=== PATIENT | male | born 1960 | race Caucasian/White ===

== ENCOUNTER 2016-10-02 12:30 | Inpatient (IN) | payer OTHER ==
[~2016-10-02] VITALS: Ht 195.6 cm; Wt 126.7 kg
--- NOTE | ~2016-10-02 | DS ---
PATIENT'S NAME: STUART PATEL V [facility] AGE: 56 Y [address] ROOM: [address] [place], [place] [address] LOCATION: [facility] [place] ADMIT DATE: 10/02/2016 Discharge Summary DISCHARGE DATE: 10/05/2016 FAMILY PHYSICIAN: Mello Bingham MD ATTENDING PHYSICIAN: Mello Bingham DISCHARGE DIAGNOSIS: Acute kidney injury on chronic kidney disease, 3 secondary to acute tubular necrosis. PROCEDURES PERFORMED: Daily renal function panel. CONSULTATIONS: Nephrology. DISCHARGE MEDICATIONS: 1. Famotidine 20 mg 1 tablet as needed. 2. Venlafaxine 75 mg once daily. 3. Advair 1 puff twice daily, 500/50. 4. Albuterol (ProAir) as needed. 5. Alprazolam 0.5 mg 3 times per day as needed. 6. Magnesium oxide 400 mg twice daily. 7. Furosemide 40 mg as needed for swelling. 8. Nebivolol 10 mg once daily. 9. Percocet 7.5/325 mg every 6 hours as needed. HISTORY OF PRESENT ILLNESS: Stuart Patel is a 56-year-old male with past medical history of CKD, stage 3; cor pulmonale with right-sided heart failure secondary to diastolic dysfunction; COPD; severe generalized anxiety disorder; and chronic pain disorder who presented to clinic on 10/02/2016 for routine checkup. Of note, he was taking multiple doses of NSAIDs in the last several weeks. He was found to have a creatinine of 4.1 and was subsequently transferred to [facility] for inpatient hospitalization. Nephrology was consulted for RITO on CKD. HOSPITAL COURSE: On admission (10/02/2016), all nephrotoxins and hypertensive medications were held. He received a 2 L normal saline bolus over 2 hours, followed by 1.5 L of normal saline over 10 hours. On day 2 of admission, (10/03/2016), his creatinine improved to 0.9. Per Nephrology's recommendations, he received half normal saline plus 75 mEq of sodium bicarbonate at 100 mL/h for 24 hours. Due to significant anxiety, he was started on venlafaxine 75 mg. On day 2 of the admission (10/04/2016), his creatinine improved to 1.8, and his intravenous fluids were discontinued. On day 4 of admission (10/05/2016), his creatinine improved to 1.6, and he was discharged with close followup with his PCP and Nephrology. PATIENT'S NAME: STUART PATEL V [facility] AGE: 56 Y [address] ROOM: [id number] [place] [id number] LOCATION: [facility] [place] ADMIT DATE: 10/02/2016 Discharge Summary DISCHARGE DATE: 10/05/2016 FAMILY PHYSICIAN: Mello Bingham MD ATTENDING PHYSICIAN: Mello Bingham DISPOSITION: Discharged to home on a low-salt diet. PCP followup in 1 week, and Nephrology followup in 2 weeks. CONDITION: Hemodynamically stable with significant improvement of his RITO upon discharge. We will follow up renal function panel at PCP appointment. MD LANA CLINE/modl /[id number] d: 10/05/16 2336 t: 10/25/16 1552, DISCHARGE SUMMARY
--- NOTE | ~2016-10-02 | CON ---
PATIENT'S NAME: STUART PATEL V [facility] AGE: 56 Y [address] ROOM: [address] [place], [place] [address] [place]: [facility] [place] ADMIT DATE: 10/02/2016 Consultation DISCHARGE DATE: FAMILY PHYSICIAN: Mello Bingham MD ATTENDING PHYSICIAN: Mello Bingham DATE OF CONSULTATION: 10/02/2016 REFERRING PHYSICIAN: Mello Bingham MD REASON FOR CONSULTATION: RITO on CKD. HISTORY OF PRESENT ILLNESS: A 56-year-old male with history of COPD; chronic respiratory failure, on home oxygen; cor pulmonale with right-sided heart failure, secondary to diastolic dysfunction; severe generalized anxiety disorder; possible obstructive sleep apnea; history of DVT in the past with mild baseline renal insufficiency with creatinine of 1.1 in the last summer; came today to Dr. Bingham's office for routine check up, found to have a creatinine of 4.1. The patient was transferred to [facility] for further evaluation and management. Nephrology consultation has been called for RITO on CKD. As per the patient's records, he was on multiple antihypertensive medications. As per the patient, he has lost significant weight in the recent times and his blood pressure at home most days runs in the 80 to 90 systolic. He was also doing some exercise, and for generalized body aches and pains, he was taking multiple doses of NSAIDs namely Aleve and Advil almost every day for the last few weeks. The patient has a history of an RITO in late 2014 and early 2015 with similar issues when he developed an RITO, following NSAIDs, ultimately leading to incomplete recovery with a creatinine of 1.1. The patient mentioned that he has been eating and drinking well; however, for the last couple of days, he is having significant nausea and dry heaves, but has not vomited. He also complained of mild hiccups occasionally. No complaint of chest pain, shortness of breath, appears to be slightly dry during my evaluation. He denies any chest pain or orthopnea or palpitation. No history of any contrast exposure in the recent past. The patient denied any other jnsw-mio-dbbgier medications other than NSAIDs. REVIEW OF SYSTEMS: GENERAL: No fever. No chills or rigor. HEENT: No sore throat. No sinus congestion. CVS: No chest pain. No exertional shortness of breath. No leg swelling. RESPIRATORY: No shortness of breath. No cough. No wheezing. GENITOURINARY: No pain with urination. No increased frequency. No nocturia. GASTROINTESTINAL: No abdominal pain. No abdominal distention. Significant nausea and dry heaves. No vomiting. Also, history of hiccups as mentioned in HPI. NEUROLOGIC: No weakness. No seizures. SKIN: No rash. No itching. ALLERGIES: No seasonal allergy. No hayfever. ENDOCRINE: No heat intolerance. No cold intolerance. PSYCHIATRIC: No sadness. No crying spells. No history of panic attack. PATIENT'S NAME: STUART PATEL V [facility] AGE: 56 Y [address] ROOM: [place] [address] LOCATION: [facility] [place] ADMIT DATE: 10/02/2016 Consultation DISCHARGE DATE: FAMILY PHYSICIAN: Mello Bingham MD ATTENDING PHYSICIAN: Mello Bingham PAST MEDICAL HISTORY: 1. COPD. 2. Cor pulmonale and right-sided heart failure secondary to diastolic congestive heart failure. 3. Early cellulitis. 4. Venous stasis dermatitis. 5. Severe generalized anxiety disorder. 6. Probable obstructive sleep apnea. 7. History of DVT. 8. Chronic respiratory failure, on 2 L of oxygen. PAST SURGICAL HISTORY: 1. Previous ankle surgery. 2. Previous thoracoscopy. 3. Arthroscopy. 4. Left inguinal hernia repair. SOCIAL HISTORY: Works at [employer]. 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 Denied any alcohol, smoking, or IV drug abuse. FAMILY HISTORY: Both parents have significant history of cardiac disorder. Father of congestive heart failure at age 89. Mother is alive at age 81. Brother is alive at 60 and with good health. Sister is 57 with history of hypertension. CURRENT MEDICATIONS: 1. ProAir HFA 2 puffs inhaler q.4 hours p.r.n. for his shortness of breath. 2. Xanax 0.25 mg p.o. b.i.d. 3. Norvasc 5 mg p.o. daily. 4. Advair 500/50 one puff inhaler b.i.d. 5. Lasix 40 mg p.o. daily and Lasix 80 mg p.o. daily, a total of 120 mg p.o. daily. 6. Lisinopril hydrochlorothiazide 05/16.5 one tablet p.o. daily. 7. Magnesium oxide 400 mg p.o. daily. 8. Bystolic 20 mg p.o. daily. 9. Percocet 1 tablet p.o. q.4 hours p.r.n. for pain. PATIENT'S NAME: STUART PATEL V [facility] AGE: 56 Y [address] ROOM: [address] [address] LOCATION: [facility] [place] ADMIT DATE: 10/02/2016 Consultation DISCHARGE DATE: FAMILY PHYSICIAN: Mello Bingham MD ATTENDING PHYSICIAN: Mello Bingham PHYSICAL EXAMINATION: VITAL SIGNS: Blood pressure 100s/60s, pulse rate 93, respiratory rate 16, temperature 98.3, saturating at 96% to 98% on room air. GENERAL: Not in apparent distress. HEAD: Dry mucous membrane. Bilateral PERRLA. EOMI. NECK: Flat JVD. No thyromegaly. No lymphadenopathy. CVS: S1 and S2 normal, regular rate and rhythm. No murmur, rub, gallop. CHEST: Bilateral air entry equal. No wheeze or rales. ABDOMEN: Soft, nontender, nondistended. Bowel sounds present. EXTREMITIES: No cyanosis, clubbing, jaundice. No dependent edema. MUSCULOSKELETAL: No limitation of range of motion. SKIN: No pallor, cyanosis, icterus. HORSE EXERCISER: Alert and oriented x3. No gross findings. LABORATORY STUDIES: Creatinine 4.1, BUN of 100, sodium 136, potassium 4.4, chloride 101, bicarb 23, calcium 9.1, glucose 102. Urinalysis and urine lytes are pending. ASSESSMENT AND PLAN: 1. Acute kidney injury on chronic kidney disease stage 3. Chronic kidney disease presumably secondary to previous acute kidney injury resulting into incomplete recovery. This acute kidney injury is possibly secondary to acute tubular necrosis either hemodynamic versus toxic secondary to NSAID induced. We will hold all antihypertensive medications. No further nephrotoxin exposure like NSAIDs or contrast. We will gently volume expand the patient. We will give couple of liters of normal saline now and we will run at 150 mL/hour. We will place and maintain a Davis catheter for strict intake and output. Daily standing weight. We will do a renal ultrasound to rule out any obstruction. Please send UA and urine lytes including sodium, potassium, chloride, bicarb and osmolality. The patient has been instructed to avoid NSAIDs in the future. The patient already had two episodes of acute kidney injury with NSAIDs, although the creatinine of 1.1 in last summer appears to be normal, but probably the estimated GFR is below 60. 2. Hypertension. The patient is on multiple antihypertensive medications for both hypertension and heart failure. The patient is on Bystolic, lisinopril/hydrochlorothiazide combination, and Lasix 120 mg p.o. daily. We will hold all antihypertensive medications for now, and we will adjust the dosing as per necessary during the time of discharge. 3. The patient has chronic obstructive pulmonary disease. We will defer that management as per the primary team. Thank you for allowing me to participate in this patient's care. We will closely monitor the patient's progress along with you. NANETTE OLVERA MD /modl /[id number] d: 10/03/168 t: 10/06/16 1635, CONSULTATION REPORT
[~2016-10-02 12:30] MED LIST: ADVAIR 500-501 EACH INH; ASTELIN NOSE; BYSTOLIC10 MG PO; BYSTOLIC5 MG PO; COMBIVENT RESPIM4 GM PO; DELTASONE20 M1 PO; DELTASONE20 MG PO; DOXYCYCLINE100 MG PO; DURICEF (NON-500 MG PO; HYDROCODON-ACE1 EAC6 PO; LASIX20 MG PO; MAG-OX-400(241400 MG PO; NORCO 10-325 T1 EACH PO; PAXIL20 MG PO; PERCOCET 7.5-31 EACH PO; PROAIR HFA8.5 GM INH; PROVENTIL OR V6.7 GM INH; XANAX0.5 MG PO
[2016-10-02] MEDS ORDERED: LASIX40 MG PO (13:57)
[2016-10-02 17:22] LABS: CALCIUM 9.1 mg/dL (8.5-10.5)
[2016-10-02 17:23] LABS: ANION GAP 16.4 (10.0-19.0); CREATININE 4.1 mg/dL (0.6-1.3); POTASSIUM 4.4 mMol/L (3.7-5.1)
[2016-10-02 23:01] LABS: BILIRUBIN URINE NEGATIVE (NEGATIVE); BLOOD URINE 50 /UL (NEGATIVE); COLOR URINE YELLOW (YELLOW); GLUCOSE URINE NEGATIVE (NEGATIVE); KETONE URINE NEGATIVE (NEGATIVE); LEUKOCYTES URINE NEGATIVE /UL (NEGATIVE); NITRITE URINE NEGATIVE (NEGATIVE); PROTEIN URINE NEGATIVE (NEGATIVE); SPEC GRAVITY URINE 1.015 (1.003-1.035); TURBIDITY URINE CLEAR (CLEAR); UROBILINOGEN URINE NORMAL (NORMAL)
[2016-10-02 23:07] LABS: BACTERIA URINE NEGATIVE (NEGATIVE); EPITHELIAL URINE 0-2 #/HPF (NEGATIVE); WBC URINE 0-2 #/HPF (NEGATIVE)
[2016-10-03 06:11] LABS: ANION GAP 15.3 (10.0-19.0); CALCIUM 8.3 mg/dL (8.5-10.5); CREATININE 2.9 mg/dL (0.6-1.3); POTASSIUM 4.3 mMol/L (3.7-5.1)
[2016-10-04 07:36] LABS: ANION GAP 11.2 (10.0-19.0); CALCIUM 8.8 mg/dL (8.5-10.5); CREATININE 1.8 mg/dL (0.6-1.3); POTASSIUM 4.2 mMol/L (3.7-5.1)
[2016-10-05 05:17] LABS: ALBUMIN 3.3 gm/dL (3.5-5.0); CREATININE 1.6 mg/dL (0.6-1.3); PHOSPHORUS 3.3 mg/dL (2.5-4.9)
[2016-10-05] MEDS ORDERED: PEPCID20 MG PO (15:33)
[2016-10-05] MEDS ORDERED: EFFEXOR75 MG PO (15:34)
== END 2016-10-05 17:15 | disposition disaster alternative care site (69) | DRG 683 ==
LOC: GMSU 13:02
PROVIDERS: Internal Medicine Nephrology; ADMIT Obstetrics & Gynecology Obstetrics
DX: N17.0 Acute kidney failure with tubular necrosis (principal); I13.0 Hypertensive heart and chronic kidney disease with heart failure and stage 1 through stage 4 chronic kidney disease, or unspecified chronic kidney disease; J96.10 Chronic respiratory failure, unspecified whether with hypoxia or hypercapnia; I95.9 Hypotension, unspecified; I50.32 Chronic diastolic (congestive) heart failure; I27.81 Cor pulmonale (chronic); E66.01 Morbid (severe) obesity due to excess calories; N18.3 Chronic kidney disease, stage 3 (moderate); J44.9 Chronic obstructive pulmonary disease, unspecified; J45.30 Mild persistent asthma, uncomplicated; G89.4 Chronic pain syndrome; Z68.32 Body mass index [BMI] 32.0-32.9, adult; F41.1 Generalized anxiety disorder; Z86.711 Personal history of pulmonary embolism; I87.2 Venous insufficiency (chronic) (peripheral)
CPT/HCPCS: J1650; J7030

== ENCOUNTER 2016-10-10 18:22 | Observation (INO) | payer OTHER ==
[~2016-10-10] VITALS: Ht 193 cm; Wt 122.2 kg
--- NOTE | ~2016-10-10 | DS ---
PATIENT'S NAME: STUART OLSEN V [facility] AGE: 56 Y [address] ROOM: [address] [place], [place] [address] LOCATION: [facility] [place] ADMIT DATE: 10/10/2016 Discharge Summary DISCHARGE DATE: 10/12/2016 FAMILY PHYSICIAN: Mohan Kennedy MD ATTENDING PHYSICIAN: Mohan Kennedy DISCHARGE DIAGNOSIS: Gout. SECONDARY DIAGNOSES: 1. Generalized anxiety disorder. 2. Cor pulmonale and right heart failure secondary to diastolic congestive heart failure. 3. Chronic obstructive pulmonary disease. 4. Chronic kidney disease, stage 3. 5. Venous stasis dermatitis. CONSULTS: None. HOSPITAL COURSE: Mr. Stuart Olsen is a 56-year-old male with the above past medical history who presented to the ED on 10/10/2016 for severe left hand pain and swelling. He was recently discharged from the hospital on 10/05/2016 following RITO on CKD stage 3 secondary to acute tubular necrosis. In the ED, he had an elevated uric acid level, ESR, and CRP and was diagnosed with acute gout affecting the metacarpophalangeal joints of his left forefinger and left middle finger. He was admitted to inpatient status and given IV methylprednisolone 80 mg q.8 hours for a total of 4 doses. His home medications were continued. He was discharged on 10/12/2016 on a steroid taper and his home medications. DISCHARGE MEDICATIONS: 1. Prednisone 10 mg tablets with a taper of 3 tablets twice daily for 3 days, then 2.5 tablets twice daily for 3 days, then 2 tablets twice daily for 3 days, then 1.5 tablets twice daily for 3 days, then 1 tablet twice daily for 3 days, then a half tablet twice daily for 3 days, then a half tablet once daily for 3 days. A total of 65 tablets of 10 mg prednisone. 2. Alprazolam 0.5 mg 3 times daily as needed. 3. Nebivolol hydrochloride 10 mg daily. 4. Venlafaxine hydrochloride tablet 75 mg once daily. 5. Magnesium oxide 400 mg tablet twice daily. 6. Advair 500/50 Diskus one puff twice daily. 7. Percocet 7.5/325 mg every 6 hours as needed. 8. ProAir 8.6 g 2 puffs every 4 hours as needed. 9. Furosemide 40 mg once daily as needed. 10. Famotidine 20 mg twice daily. PATIENT'S NAME: STUART OLSEN V [facility] AGE: 56 Y [address] ROOM: [address] [address] LOCATION: [facility] [place] ADMIT DATE: 10/10/2016 Discharge Summary DISCHARGE DATE: 10/12/2016 FAMILY PHYSICIAN: Mohan Kennedy MD ATTENDING PHYSICIAN: Mohan Kennedy DIET: Low-salt diet, less than 2 g per day. CONDITION: Fair. DISPOSITION: Stuart is discharged home on a steroid taper with close PCP followup in 3 days on 10/15/2016, with a second followup on 10/19/2016. We discussed the possibility of assisted living with him while he was in the hospital and will follow up on that conversation at his outpatient appointment. KEYLA KIDD, MEDICAL STUDENT FOR MOHAN KENNEDY MD AT/modl /[id number] d: 10/12/16 1413 t: 10/25/16 1632, DISCHARGE SUMMARY
--- NOTE | ~2016-10-10 | HP ---
PATIENT'S NAME: STUART PATEL V [facility] AGE: 56 Y [address] ROOM: [place] [address] LOCATION: [facility] ADMIT DATE: 10/10/2016 History & Physical DISCHARGE DATE: FAMILY PHYSICIAN: Mello Bingham MD ATTENDING PHYSICIAN: Aaron Ortez DATE OF SERVICE: CHIEF COMPLAINT: Severe left hand pain and swelling. HISTORY OF PRESENT ILLNESS: The patient is a 56-year-old white male who was just discharged from the hospital on 10/05/2016 following RITO on chronic kidney disease, stage 3, secondary to acute tubular necrosis. He was admitted after using NSAIDs inappropriately with a creatinine of 4.1; subsequently, came down to 1.6 at the time of his discharge. He states since he has went home he started having some swelling and pain of his hand over the last 4-5 days, he has not been seen during that time, and came in requesting pain medicine. He did have an elevated uric acid level and was also found to complain of bilateral foot pain, which he states has been there for years, and is not any different than his norm. He states he was told by the ER physician that he cannot be at home on his own and does not feel like he can be safe at home at this point. He states he is unable to move himself out of a chair or out of bed at all. PAST MEDICAL HISTORY: All reviewed from and P on 10/02/2016 and are unchanged. SOCIAL HISTORY: All reviewed from and P on 10/02/2016 and are unchanged. FAMILY HISTORY: All reviewed from and P on 10/02/2016 and are unchanged. REVIEW OF SYSTEMS: All reviewed from and P on 10/02/2016 and are unchanged. PHYSICAL EXAMINATION: VITAL SIGNS: Weight 122.9 kg, pulse 85, respirations 16, temperature 97.2, blood pressure 127/82, and O2 saturation 93% on room air. GENERAL: The patient is nontoxic appearing 56-year-old in mild amount of distress, secondary to left hand pain and swelling. HEENT: Normocephalic and atraumatic. He really is not taking very good care of himself at this point throughout the weeks. HEART: Regular rate and rhythm. PATIENT'S NAME: STUART PATEL V [facility] AGE: 56 Y [address] ROOM: [place] [address] LOCATION: [facility] ADMIT DATE: 10/10/2016 History & Physical DISCHARGE DATE: FAMILY PHYSICIAN: Mello Bingham MD ATTENDING PHYSICIAN: Aaron Ortez LUNGS: Clear. ABDOMEN: Obese, nondistended, nontender. Bowel sounds positive. There is no hepatosplenomegaly. No guarding or rebound. EXTREMITIES: No clubbing or cyanosis. To lower extremities, he does have feet that are under very poor care, they are unkept, extreme callus from each one is noted, and they are very dry. His left hand does have a fair amount of swelling and erythema present especially over the 2nd and 3rd MCP joint. He is going through range of motion of his wrist and of his hand. NEUROLOGICAL: He is focally intact. LABORATORY DATA: Alcohol level is normal. CRP is 23.0. Pro-BNP is 317. Procalcitonin level is 0.19. Sedimentation rate 101. CMS shows sodium 138, potassium 3.9, chloride 102, CO2 23, glucose 88, calcium 9.1, BUN 24, creatinine 1.4, total protein 7.9, albumin 2.8, bilirubin 0.8, alk phos 200, AST 22, ALT 34, and estimated GFR 52. His magnesium was 2.0, CPK is 10, MB is normal, and troponin is normal. D-dimer is elevated at 1.73. Uric acid is elevated at 10.9. Rheumatoid factor is less than 10. CBC shows white cell count is 7.5, hemoglobin 10.9, hematocrit 32.6%, and platelet count 235,000. PTT is 30, PT is 10.7 with an INR of 1.0. ABG shows a pH of 7.41, pCO2 of 39, pO2 of 70, bicarb 26, and O2 saturations 94% on room air with a lactate of 0.7. ASSESSMENT AND PLAN: A 56-year-old white male with the following problem list: 1. Significant swelling of left hand. He feels like this has completely incapacitated him and he is not able to be safely at home. He states this combined with his bilateral foot pain, which is stable, but chronic for him have riddled him in unsafe environment. He states he cannot even get out of a chair or out of bed at all. He is very unkept when he comes in. 2. History of pulmonary embolism. He does have a V/Q scan that is currently pending, but did go over the CT scan because of his recent acute renal injury obviously that is positive we will need to put him on heparin. 3. Chronic kidney disease, stage 3. Overall, this is stable at this point. 4. History of heart failure with preserved ejection fraction. Overall, stable at this point. 5. Venous stasis dermatitis, which is pretty significant. 6. Probable obstructive sleep apnea. 7. Severe generalized anxiety disorder. This may be playing a big role in this as well as he really is actually pretty giddy about being here and really I think liked the hospitalized setting and certainly does not want to go home at this point. This has been discussed with the patient. He voiced understanding of the plan. Dr. Bingham will assume care in the morning. PATIENT'S NAME: STUART PATEL V [facility] AGE: 56 Y [address] ROOM: [place] [address] LOCATION: [facility] ADMIT DATE: 10/10/2016 History & Physical DISCHARGE DATE: FAMILY PHYSICIAN: Mello Bingham MD ATTENDING PHYSICIAN: Aaron Ortez LINA MC MD TAB/modl /[id number] D: T: HISTORY & PHYSICAL
--- NOTE | ~2016-10-10 | ER ---
PATIENT'S NAME: STUART PATEL [facility] AGE: 56 Y [address] ROOM: [facility] [place] [place], [place] [address] [place] [facility] [place] DATE: 10/10/2016 ER/Outpatient Report DISCHARGE DATE: FAMILY PHYSICIAN: Mello Bingham MD ATTENDING PHYSICIAN: Mello Bingham Time of Arrival: Admission date and time documented on the medical record. Time of Evaluation: I saw the patient at 1830 hours. CHIEF COMPLAINT: Unable to ambulate because of left knee pain, also has swelling and pain in his left hand and wrist. HISTORY OF PRESENT ILLNESS: The patient feels like he cannot take care of himself at home; because of his pain, presented to the emergency room. The patient was brought to the emergency room by paramedics via ambulance for evaluation. The patient states he has not been up and about very much at all for the past 4 to 5 days; has not eaten or drank pretty much except for some little bit of food that the friends brought in. He has not bathe or cleansed himself for 4 to 5 days. Very unkempt individual on arrival to the emergency department. The patient states he is kind of having generalized weakness; feels like he is dehydrated. No fall or trauma. Denies any recent fever, chills, or sweats. Denies any cough. No real shortness of breath, but does have some chest discomfort at times. No lightheadedness, dizziness, syncope, or near syncope. No abdominal pain, nausea, vomiting, or diarrhea. No skin eruptions or rash. Does have swelling of his left hand and wrist with decreased range of motion, and also has swelling of his left knee with decreased range of motion. No endocrine problems or neuro changes. Does have anxiety and depression. HOME MEDICATIONS: See attached medication list. ALLERGIES: NONE. SOCIAL HISTORY: Nonsmoker. Does drink alcohol. SIGNIFICANT PAST MEDICAL HISTORY: Nonsustained V-tach; COPD, asthmatic type; exogenous obesity; nocturnal hypoxia; chronic kidney disease; cor pulmonale; diastolic dysfunction with right-sided congestive failure; venous stasis dermatitis; anxiety; depression; chronic respiratory failure, O2 dependent; deep vein thrombosis; pulmonary embolism; and hypertension. PATIENT'S NAME: STUART PATEL [facility] AGE: 56 Y [address] ROOM: [id number] [place], [place] [address] LOCATION: [facility] [place]MIT DATE: 10/10/2016 ER/Outpatient Report DISCHARGE DATE: FAMILY PHYSICIAN: Mello Bingham MD ATTENDING PHYSICIAN: Mello Bingham OPERATIONS: Ankle surgery, right knee surgery, left inguinal herniorrhaphy, and shoulder surgery. REVIEW OF SYSTEMS: All systems reviewed by me are negative with the exception of those discussed in the history of present illness. PHYSICAL EXAMINATION: VITAL SIGNS: Temperature 97.2, pulse 85, respirations 16, blood pressure 127/82, and O2 saturation on room air is 93%. HEAD: Normocephalic. EYES: Extraocular muscles intact. PERRL. EARS: Clear TMs bilaterally. NOSE: Clear. THROAT: Clear. Mucous membranes dry. NECK: No nuchal rigidity. No thyromegaly or cervical adenopathy. SPINE: Negative. LUNGS: Decreased breath sounds diffusely. No rales, rhonchi, or wheezes. HEART: Regular. Pulses palpable. Some anterior chest pain to palpation. ABDOMEN: Mildly obese, soft, nondistended, nontender. Good bowel tones. No organomegaly or abnormal masses palpable. EXTREMITIES: No peripheral cyanosis. Does have edema to his left hand and wrist and left knee. No deformity. NEUROVASCULAR: Appears to be intact. The patient is weak. SKIN: Has venous stasis dermatitis on his lower extremities. No other rashes or exanthems. IMAGING DATA: EKG showed sinus rhythm. No acute ST elevation, ischemic changes, or arrhythmia. Chest x-ray shows cardiomegaly. Possible some increased vascular congestion. No acute infiltrate. We will review x-ray with the radiologist. LABORATORY DATA: Medical blood alcohol was less than 0.01. CRP was 23.8. ProBNP was slightly elevated at 317. Sedimentation rate was elevated at 101. Lactate was 0.7. Arterial blood gases on room air showed a pH of 7.41, pCO2 of 39, pO2 of 70 with an O2 saturation of 94%. White count was 7500, 63 segs, 18 lymphs, 14 monos, 4 eos, 1 baso; hemoglobin was 10.9; hematocrit 32.6; platelet count was 235,000. PTT was 30, pro-time was 10.7, INR 1.0. Uric acid was elevated at 10.9. Quantitative rheumatoid factor was less than 20. Serum ammonia level was less than 10. D-dimer was 1.73. Did proceed with a V/Q scan of the lungs that showed low probability of PE. CMS was normal except for an elevated BUN of 24, elevated creatinine 1.4, low GFR of 52. Alkaline phosphatase was 200. PATIENT'S NAME: STUART PATEL [facility] AGE: 56 Y [address] ROOM: [address] [address] LOCATION: [facility] [place]MIT DATE: 10/10/2016 ER/Outpatient Report DISCHARGE DATE: FAMILY PHYSICIAN: Mello Bingham MD ATTENDING PHYSICIAN: Mello Bingham Magnesium was 2.0. Puwil-fo-vxva cardiac enzymes and CPK were normal. Procalcitonin was 0.19. IMPRESSION: 1. Left hand, wrist, and knee swelling/pain. Most likely secondary to gout. The patient's uric acid is elevated. Because of his pain and swelling, he is unable to ambulate and take care of himself at home. He has not been eating or drinking very well or getting around in his apartment. The patient is in need of assistance, possibly placement. 2. Chronic kidney disease. 3. Chronic obstructive pulmonary disease, asthma, chronic respiratory failure, O2 dependent. 4. Cor pulmonale. 5. Diastolic dysfunction with right-sided failure. 6. Past history of deep vein thrombosis with pulmonary embolism. 7. Hypertension. PLAN: Discussed the patient with Dr. Vazquez for Dr. Bingham. Dr. Vazquez is coming in to evaluate the patient and possibly admit the patient to the hospital. Discussion ensued with the patient concerning my findings and recommendations, he understands. MD ZONIA KARIMI/modl /[id number] d: 10/11/16 0824 t: 10/16/16 1821, OUTPATIENT REPORT
[~2016-10-10 18:22] MED LIST changes: -DELTASONE10 MG PO; -LASIX80 MG PO; -NORVASC5 MG PO; -ZESTORETIC 10-1 EACH PO
[2016-10-10 19:18] LABS: BICARBONATE 24.7 mmol/L (18.0-23.0); LACTATE 0.7 mEq/L (0.50-1.60); PCO2 39 mmHg (35-45); PO2 70 mmHg (80-90)
[2016-10-10 20:35] LABS: BASOPHIL % 0.5 %; EOSINOPHIL # 0.3 K/uL (0.0-0.5); HEMATOCRIT 32.6 % (37.0-53.0); HEMOGLOBIN 10.9 g/dL (12.0-17.0); IMMATURE GRANULOCYTE # 0.1 K/uL (0.0-0.3); IMMATURE GRANULOCYTE % 0.8 %; LYMPHOCYTE # 1.4 K/uL (0.8-4.0); LYMPHOCYTE % 18.3 %; MCH 32.5 pg (27.0-34.0); MCHC 33.4 gm/dL (32.0-36.5); MCV 97.3 fl (83.0-98.0); MONOCYTE # 1.1 K/uL (0.0-1.0); MONOCYTE % 13.9 %; NEUTROPHIL # (ANC) 4.7 K/uL (1.4-9.0); NEUTROPHIL % 62.5 %; NRBC % 0 /100WBC (0-0.00); PLATELET COUNT 235 K/uL (150-450); RBC 3.35 M/uL (4.00-6.00); RDW-CV 12.6 % (11.9-14.6); WBC 7.5 K/uL (4.0-11.0)
[2016-10-10 20:46] LABS: PROTIME 10.7 SECONDS (9.6-11.1); PTT 30 SECONDS (25-32)
[2016-10-10 20:56] LABS: ALBUMIN 2.8 gm/dL (3.5-5.0); ALK PHOS 200 IU/L (33-138); ALT 34 IU/L (12-78); ANION GAP 16.9 (10.0-19.0); AST 22 IU/L (10-40); BLOOD UREA NITROGEN 24 mg/dL (6-24); CALCIUM 9.1 mg/dL (8.5-10.5); CHLORIDE 102 mMol/L (96-110); CO2 23 mMol/L (22-32); CPK 10 IU/L (35-332); CREATININE 1.4 mg/dL (0.6-1.3); ESTIMATED GFR (MDRD EQUATION) 52; POTASSIUM 3.9 mMol/L (3.7-5.1); SODIUM 138 mMol/L (135-145); TOTAL BILIRUBIN 0.8 mg/dL (0.0-1.5); TOTAL PROTEIN 7.9 g/dL (6.0-8.4)
--- NOTE | 2016-10-11 03:55 | NUR ---
ADMIT FOR ACUTE GOUT AND GENERALIZED WEAKNESS. PATIENT RECENTLY DISCHARGED FROM HOSPITAL ON 10/05 AFTER RITO WITH CHRONIC KIDNEY DISEASE. SINCE DISCHARGE PATIENT HAS DECLINE IN ADL'S, POOR APPETITE AND NOTICED INCREASE IN SWELLING AND PAIN IN L) HAND. FRIENDS WHO HAVE BEEN PERIODICALLY CHECKING IN ON PATIENT CALLED 911 WHEN FINDING PATIENT IN POOR STATE OF HEALTH IN THE EVENING. SURGICAL HISTORY INCLUDES L) FRACTURED ANKLE REPAIR, BILAT KNEE SCOPES, L) HERNIA REPAIR, L) SHOULDER SX. MEDICAL HX INCLUDES: SEASONAL ALLERGIES, HTN, CHF, EDEMA, HX PE, ASTHMA, COPD, ARTHRITIS, CONSTIPATION, KIDNEY DISEASE, ECZEMA, EXCESSIVE DRYNESS, ANXIETY.
--- NOTE | 2016-10-11 04:44 | NUR ---
Significant Event: Pt alert and Oriented x3. Cooperative with cares. Left arm and hand sadaf 2+. elevated on pillows.pulses thready. Pt denied wanting any food on admission. Percocet given x1 for pain relief. VSS. RA. pt 2 assist. scabs on legs bilatearly. Pt is to get 2 L fluids on 1st L now. pt voided in ER but has not yet voided for me. last BM was saturday. IV right wrist. Follow up:
[2016-10-11 05:44] LABS: ANION GAP 16.4 (10.0-19.0); CALCIUM 9.3 mg/dL (8.5-10.5); CREATININE 1.3 mg/dL (0.6-1.3); POTASSIUM 4.4 mMol/L (3.7-5.1)
--- NOTE | 2016-10-11 17:00 | NUR ---
SPOKE TO PATIENT REGARDING CM AND OUR ROLE. PATIENT LIVES ALONE IN OWN HOME, HE IS PLANNING ON RETURNING HOME ONCE HE IS READY FOR DISCHARGE. HE REPORTS THAT HE HAS HAD HHC IN THE PAST AND MAY WANT IT AGAIN. HE TELLS ME THAT HE NEEDS HELP WITH " CLEANING MY HOUSE" I WILL CONTACT THE [facility] IN THE AM TO SEE IF THEY CAN BE OF ANY HELP.
--- NOTE | 2016-10-11 18:59 | NUR ---
Significant Event: Patient alert and oriented but forgetful at times. Standing at the bedside to void. Patient states not having an appetite, denies nausea. L) hand and forearm swollen and elevated on a pillow. Percocet 7.5mg/325mg given x 2 doses with the last at 1442. IV fluids dc'd, saline lock to his inner R) wrist. Up to the recliner this afternoon with assist, gait slightly unsteady. New order for Albuterol Inhaler 2 puffs q 4hrs prn and patient did receive a dose this afternoon per RT. Follow up: Monitor pain.
--- NOTE | 2016-10-12 04:04 | NUR ---
Significant Event: Patient is alert and oriented x 3. VSS on room air. Unsteady gait. Up with 1-2 assist. 2-3+ edema to left upper extremity. Moves slightly. 1+ pulse. Elevated on pillow. Right wrist IV, saline locked. Received Oxycodone for pain last at 1910. Patient is pleasant and cooperative with cares. Follow up:
[2016-10-12 06:08] LABS: BASOPHIL % 0.1 %; HEMATOCRIT 31.3 % (37.0-53.0); HEMOGLOBIN 10.4 g/dL (12.0-17.0); IMMATURE GRANULOCYTE # 0.2 K/uL (0.0-0.3); IMMATURE GRANULOCYTE % 1.8 %; LYMPHOCYTE # 0.7 K/uL (0.8-4.0); LYMPHOCYTE % 7.9 %; MCH 32.1 pg (27.0-34.0); MCHC 33.2 gm/dL (32.0-36.5); MCV 96.6 fl (83.0-98.0); MONOCYTE # 0.5 K/uL (0.0-1.0); MONOCYTE % 5.1 %; MPV 10.2 fl (9.4-12.4); NEUTROPHIL # (ANC) 7.5 K/uL (1.4-9.0); NEUTROPHIL % 85.1 %; NRBC % 0 /100WBC (0-0.00); PLATELET COUNT 242 K/uL (150-450); RBC 3.24 M/uL (4.00-6.00); RDW-CV 12.5 % (11.9-14.6); WBC 8.8 K/uL (4.0-11.0)
[2016-10-12 06:23] LABS: ANION GAP 12.2 (10.0-19.0); CALCIUM 9.1 mg/dL (8.5-10.5); CREATININE 1.4 mg/dL (0.6-1.3); POTASSIUM 4.2 mMol/L (3.7-5.1)
--- NOTE | 2016-10-12 08:31 | NUR ---
NOTIFIED [facility] AND [facility]ADE REFERRAL FOR STUART TO SEE IF THEY CAN PROVIDE HIM SERVICES, HAD TO LEAVE A MESSAGE FOR DELVIN TO CONTACT ME.
--- NOTE | 2016-10-12 11:19 | NUR ---
Patient refused repeatedly to ambulate, shower, reposition. Refused self cares throughtout shift.
--- NOTE | 2016-10-12 11:49 | NUR ---
I have examined the student charting and find it acceptable. ALMA Batista
[2016-10-12] MEDS ORDERED: LASIX80 MG PO (12:24)
[2016-10-12] MEDS ORDERED: ZESTORETIC 10-1 EACH PO (12:24)
[2016-10-12] MEDS ORDERED: NORVASC5 MG PO (12:24)
[2016-10-12] MEDS ORDERED: DELTASONE10 MG PO (12:26)
[2016-10-12] MEDS ORDERED: MAG-OX-400(241400 MG PO (12:27)
--- NOTE | 2016-10-12 14:30 | NUR ---
DISCHARGE: Pt. was educated on new medications predisone and mag-ox. Educated on gout prevention and gout food choices, discharge instructions, scripts, and preventing DVTs. Verbalized understanding, no questions or concerns. Left with all belongings from safe and paperwork. IV removed by primary RN. Taken to front door by aide and driven home by friend.
== END 2016-10-12 14:30 | disposition disaster alternative care site (69) ==
LOC: GMED 18:22 → GMSU 23:43
PROVIDERS: Emergency Medicine; Obstetrics & Gynecology Obstetrics; ADMIT Family Medicine
DX: M10.9 Gout, unspecified (principal); F41.1 Generalized anxiety disorder; J44.9 Chronic obstructive pulmonary disease, unspecified; I50.9 Heart failure, unspecified; N18.3 Chronic kidney disease, stage 3 (moderate); I87.2 Venous insufficiency (chronic) (peripheral); Z79.899 Other long term (current) drug therapy
CPT/HCPCS: A9539; A9540; G0378; G0480; J2930; J7030

== ENCOUNTER → 2016-10-10 | Outpatient (CLI) | payer OTHER ==
[~2016-10-10] MED LIST changes: +DELTASONE10 MG PO; +EFFEXOR75 MG PO; +LASIX40 MG PO; +LASIX80 MG PO; +NORVASC5 MG PO; +PEPCID20 MG PO; +ZESTORETIC 10-1 EACH PO
== END | disposition disaster alternative care site (69) ==
LOC: GAMB 17:59
DX: M79.602 Pain in left arm (principal); M79.89 Other specified soft tissue disorders
CPT/HCPCS: A0425; A0429